=== PATIENT | male | born 1965 | race Caucasian/White ===

== ENCOUNTER 2016-07-17 16:03 | Emergency (ER) | payer OTHER ==
[~2016-07-17] VITALS: Ht 180.3 cm; Wt 81.9 kg
[~2016-07-17 16:03] MED LIST: CLONAZEPAM0.5 MG PO; LEXAPRO20 MG PO; MIDODRINE HCL5 MG PO; MOTRIN IB200 MG PO; NICOTINE PATCH1 EAC1 TD; PREDNISONE10 M1 PO; PROTONIX40 MG PO; RANITIDINE HCL300 MG PO; TRILEPTAL75 MG PO
[2016-07-17 17:15] LABS: ADD MIUA? YES; BILIRUBIN NEGATIVE; BLOOD NEGATIVE; COLOR YELLOW ((YELLOW)); GLUCOSE (STRIP) NEGATIVE; KETONES NEGATIVE; LEUKOCYTES NEGATIVE; NITRITE NEGATIVE; PROTEIN (STRIP) NEGATIVE; UROBILINOGEN 0.2 MG/DL (0.2-1.0)
[2016-07-17 17:53] LABS: BACTERIA RARE /HPF; EPITHELIAL CELLS NONE SEEN /HPF; MUCUS TRACE /LPF; RED BLOOD CELLS 0-5 /HPF (0-5); WHITE BLOOD CELLS 0-5 /HPF (0-5)
[2016-07-17] MEDS ORDERED: MOTRIN600 MG PO (18:02)
[2016-07-17] MEDS ORDERED: FLEXERIL10 MG PO (18:02)
[2016-07-17] MEDS ORDERED: PREDNISONE20 MG PO (18:02)
[2016-07-17 18:04] VITALS: BP 103/74
[2016-07-17] MEDS ORDERED: PERCOCET 5/31 TABLET PO (18:13)
== END 2016-07-17 18:41 | disposition home or self-care (01) ==
LOC: EME 16:03
PROVIDERS: Nurse Practitioner Family
DX: M54.5 Low back pain (principal); F17.200 Nicotine dependence, unspecified, uncomplicated; Z88.0 Allergy status to penicillin
CPT/HCPCS: 72100; 81003; 99281; 99283; J1885; J3360; J7512

== ENCOUNTER 2018-01-09 10:37 | Emergency (ER) | payer OTHER ==
[~2018-01-09] VITALS: Ht 180.3 cm; Wt 83.6 kg
[~2018-01-09 10:37] MED LIST changes: +FLEXERIL10 MG PO; +MOTRIN600 MG PO; +PERCOCET 5/31 TABLET PO; +PREDNISONE20 MG PO
[2018-01-09] MEDS ORDERED: LIDODERM 5% P1 PATCH TD (16:59)
[2018-01-09] MEDS ORDERED: BACLOFEN10 MG PO (16:59)
[2018-01-09] MEDS ORDERED: MOTRIN800 MG PO (16:59)
[2018-01-09 17:28] VITALS: BP 120/73
== END 2018-01-09 17:29 | disposition home or self-care (01) ==
LOC: EME 10:37
DX: M25.552 Pain in left hip (principal); M79.652 Pain in left thigh; R20.0 Anesthesia of skin; W01.0XXA Fall on same level from slipping, tripping and stumbling without subsequent striking against object, initial encounter; F17.200 Nicotine dependence, unspecified, uncomplicated
CPT/HCPCS: 73502; 73721; 99281; 99284; J1885; J3010